=== PATIENT | male | born 1985 | race Caucasian/White ===

== ENCOUNTER 2016-11-19 11:24 | Emergency (ER) | payer OTHER ==
[2016-11-19] MEDS ORDERED: PREZISTA75 MG PO (11:42)
[2016-11-19] MEDS ORDERED: TRUVADA 100 MG1 EACH (11:42)
== END 2016-11-19 13:01 | disposition home or self-care (01) ==
LOC: SED 11:24
DX: T43.621A Poisoning by amphetamines, accidental (unintentional), initial encounter (principal); F15.10 Other stimulant abuse, uncomplicated; B20 Human immunodeficiency virus [HIV] disease; F17.200 Nicotine dependence, unspecified, uncomplicated
CPT/HCPCS: 99283